=== PATIENT | female | born 1970 | race Caucasian/White ===

== ENCOUNTER → 2021-12-06 | Outpatient (CLI) | payer OTHER ==
[~2021-12-06] MED LIST: CLONAZEPAM2 MG PO; DICLOFENAC SODI75 MG PO; L-METHYLFOLATE15 MG PO; LEVSIN TAB 00.125 MG PO; LEVSIN TAB 00.125 MG SL; LIDOCAINE PATCH TOP; SERTRALINE HCL100 MG PO; SYNTHROID175 MCG PO; TOPAMAX200 MG PO; TRILEPTAL600 MG PO; VIT D PO
[2021-12-06 10:53] LABS: HEMOGLOBIN 13.4 gm/dl (12.3-15.3); RED BLOOD COUNT 4.42 M/UL (4.00-5.10); WHITE BLOOD COUNT 7.1 K/UL (4.5-11.0)
[2021-12-06 13:21] LABS: BUN/CREATININE RATIO 18 (0-10)
[2021-12-07 08:17] LABS: HIV AB/P24 AG SCREEN Non Reactive (Non Reactive)
== END ==
LOC: LAB 10:32
PROVIDERS: Family Medicine
DX: E03.9 Hypothyroidism, unspecified (principal); E78.2 Mixed hyperlipidemia; J01.00 Acute maxillary sinusitis, unspecified; M79.7 Fibromyalgia; Z11.4 Encounter for screening for human immunodeficiency virus [HIV]
CPT/HCPCS: 36415; 80053; 80061; 84439; 84443; 85025; 87389

== ENCOUNTER → 2022-03-07 | Outpatient (CLI) | payer OTHER | LOC: LAB 11:48 | DX: E03.9 Hypothyroidism, unspecified (principal) | CPT/HCPCS: 36415; 84439; 84443 ==

== ENCOUNTER → 2022-03-14 | Outpatient (CLI) | payer OTHER ==
[2022-03-14 10:52] LABS: HEMOGLOBIN 13.4 gm/dl (12.3-15.3); RED BLOOD COUNT 4.51 M/UL (4.00-5.10); WHITE BLOOD COUNT 4.9 K/UL (4.5-11.0)
[2022-03-14 11:13] LABS: BUN/CREATININE RATIO 16 (0-10)
[2022-03-15 08:14] LABS: CHOLESTEROL, TOTAL 149 mg/dL (100-199); HDL CHOLESTEROL 41 mg/dL (>39); LDL CHOLESTEROL CALC 71 mg/dL (0-99); LDL/HDL RATIO 1.7 ratio (0.0-3.2); T. CHOL/HDL RATIO 3.6 ratio (0.0-4.4); TRIGLYCERIDES 226 mg/dL (0-149)
== END ==
LOC: LAB 03-13 13:22
PROVIDERS: Nurse Practitioner Family
DX: G43.009 Migraine without aura, not intractable, without status migrainosus (principal); R42 Dizziness and giddiness; Z71.3 Dietary counseling and surveillance
CPT/HCPCS: 36415; 80053; 80061; 85025

== ENCOUNTER → 2022-04-03 | Outpatient (CLI) | payer OTHER | LOC: KOH-I 15:15 | DX: G43.009 Migraine without aura, not intractable, without status migrainosus (principal) | CPT/HCPCS: 70551 ==

== ENCOUNTER → 2022-05-11 | Outpatient (CLI) | payer OTHER ==
[2022-05-11 09:23] LABS: HEMOGLOBIN 13.2 gm/dl (12.3-15.3); RED BLOOD COUNT 4.4 M/UL (4.00-5.10); WHITE BLOOD COUNT 6.5 K/UL (4.5-11.0)
[2022-05-11 09:46] LABS: BUN/CREATININE RATIO 21 (0-10)
[2022-05-12 10:14] LABS: HIV AB/P24 AG SCREEN Non Reactive (Non Reactive)
== END ==
LOC: LAB 09:02
PROVIDERS: Family Medicine
DX: E03.9 Hypothyroidism, unspecified (principal); E78.2 Mixed hyperlipidemia; F34.1 Dysthymic disorder; G43.009 Migraine without aura, not intractable, without status migrainosus; M79.7 Fibromyalgia
CPT/HCPCS: 36415; 80053; 80061; 82607; 84439; 84443; 85027; 87389